=== PATIENT | male | born 1970 | race African-American/Black ===

== ENCOUNTER → 2017-04-16 | Outpatient (CLI) | payer OTHER ==
--- NOTE | ~2017-04-16 | ST ---
Unit #: [id number] #: [id number] Patient: GEOVANNA BARKER [id number] [facility]. [address] [address] [id number] O MR#: [id number] NAME: GEOVANNA BARKER : 1970 SEX: M STUDY DATE/TIME: 04/16/2017 UNIT: [facility] ROOM: STUDY DESCRIPTION: Attending Physician: Rama Sanchez M.D. Referring Physician: Rama Sanchez M.D. Primary Care Physician: [facility] CARDIOLOGY REPORT EXAM EKG portion of an exercise Cardiolite stress test. REASON FOR EXAM History of chest pain and palpitations. DISCUSSION Baseline EKG reveals a sinus bradycardia with ventricular rate of 55 beats per minute. Poor R-wave progression noted in the anterior leads. Nonspecific ST-T wave changes. Patient exercised on the treadmill according to Esdras protocol for 11 minutes and 16 seconds, achieving a workload of 13.4 METs. Maximal heart rate was 160 beats per minute which represents 91% of the maximal age predicted heart rate. Maximal blood pressure was 217/86 mmHg. There were no complaints of chest pain. There were no sustained arrhythmias noted. There was a motion artifact toward the end of the test but no ST or T wave changes to suggest ischemia. The test was stopped due to protocol completion. The patient's blood pressure improved in recovery. IMPRESSION 1. Negative EKG portion of exercise Cardiolite stress test. 2. There were no complaints of chest pain. 3. There were no sustained arrhythmias noted. 4. There were no ST or T wave changes to suggest ischemia. 5. Please correlate with Cardiolite images. Dictated by... Roxy Soto APRN for Geo Duran TD: 04/16/2017 16:46 JOB #: [id number] Unit #: [id number] #: [id number] Patient: GEOVANNA BARKER CARDIOLOGY REPORT Page 1 of 1 X CARDIOLOGY REPORT
--- NOTE | ~2017-04-16 | TH ---
Unit #: [id number] #: [id number] Patient: GEOVANNA BARKER [id number] [address] [address] [id number] O MR#: [id number] NAME: GEOVANNA BARKER : 1970 SEX: M STUDY DATE/TIME: 04/16/2017 UNIT: [facility] ROOM: STUDY DESCRIPTION: Attending Physician: Rama Sanchez M.D. Referring Physician: Rama Sanchez M.D. Primary Care Physician: [facility] CARDIOLOGY REPORT EXAM Exercise Cardiolite stress test, nuclear portion. PROCEDURE Using technetium 99m labeled Cardiolite, rest and stress SPECT images were obtained. Multiple SPECT images were obtained in various views including horizontal and vertical long axis and short axis views of the left ventricle. Images were obtained by gated SPECT method. The patient was administered 11.69 mCi of Cardiolite at rest. Patient was administered 35.6 mCi of Cardiolite at peak exercise. Total exercise time is 11 minutes and 16 seconds. On the stress images, there is normal perfusion noted. The rest images show normal perfusion. Comparing rest and stress images, there is no stress-induced ischemia noted. The left ventricular ejection fraction is calculated to be 56%. There is no focal wall motion abnormality seen. CONCLUSION 1. No stress-induced ischemia noted. 2. The left ventricular ejection fraction is calculated to be 56%. 3. There is no focal wall motion abnormality seen. 4. Normal exercise Cardiolite stress test. 5. It must be noted that the patient's baseline blood pressure was elevated at 157/97 mmHg. Patient had hypertensive blood pressure response with a peak blood pressure of 217/86 mmHg. Clinical correlation is requested. Dictated by... Geo Duran TD: 04/16/2017 15:12 JOB #: [id number] Unit #: [id number] #: [id number] Patient: GEOVANNA BARKER CARDIOLOGY REPORT Page 1 of 1 X Rama Sanchez MD <ELECTRONICALLY SIGNED> 06/19/17 1429 CARDIOLOGY REPORT
== END | disposition home or self-care (01) ==
LOC: CNUC 07:48
DX: R07.9 Chest pain, unspecified (principal); I10 Essential (primary) hypertension
CPT/HCPCS: 78452; 93017; A9500